=== PATIENT | male | born 1990 | race African-American/Black ===

== ENCOUNTER 2022-11-29 18:04 | Emergency (ER) | payer SELFPAY ==
[~2022-11-29] VITALS: Ht 167.6 cm; Wt 77.0 kg
[2022-11-29 18:30] VITALS: BP 148/95; O2SAT 100
[2022-11-29] MEDS ORDERED: IBUP-2029 MT (19:53)
[2022-11-29 20:26] VITALS: PULSE 66; RESP 16; TEMP 98.6
== END 2022-11-29 20:27 | disposition home or self-care (01) ==
LOC: ER 18:04
DX: S16.1XXA Strain of muscle, fascia and tendon at neck level, initial encounter (principal); V49.49XA Driver injured in collision with other motor vehicles in traffic accident, initial encounter; Y93.89 Activity, other specified; Y92.89 Other specified places as the place of occurrence of the external cause; Y99.8 Other external cause status
CPT/HCPCS: 99281

== ENCOUNTER 2024-09-27 19:04 | Emergency (ER) | payer MEDICAID, OTHER ==
[~2024-09-27] VITALS: Ht 167.6 cm; Wt 85.9 kg
[~2024-09-27 19:04] MED LIST: IBUP-2029 MT
[2024-09-27 19:24] VITALS: TEMP 36.9; O2SAT 99
[2024-09-27] MEDS ORDERED: LIDO-53 TP (21:35)
[2024-09-27] MEDS ORDERED: IBUP-2029 MT (21:35)
[2024-09-27 21:50] VITALS: BP 160/98; PULSE 67; RESP 20; O2SAT 100
== END 2024-09-27 22:33 | disposition home or self-care (01) ==
LOC: ER 19:04
DX: M54.2 Cervicalgia (principal); M54.9 Dorsalgia, unspecified
CPT/HCPCS: 99282